=== PATIENT | female | born 1970 | race Caucasian/White ===

== ENCOUNTER → 2018-01-17 | Outpatient (CLI) | payer OTHER ==
[2014-12-04 13:49] VITALS: BMI 25.0
[~2018-01-17] MED LIST: ALB6.7R INH; ALLERGY INJECTION IM; ASPI-692 PO; FLUT1DIS28 IH; GOLYTE PO; HYDR2TAB4 PO; IBUP800T37 PO; IPRA15SP7 NS; MONT10TA PO; MULT-865 PO; OXYM30MI5 NS; TIO18R INH
--- NOTE | 2018-01-18 10:11 | RADIOLOGY IMAGING REPORT ---
FACILITY: [facility] - [place], [place] PATIENT NAME: JUAN LUIS ANDERSON : [id number] MR: [id number] V: [id number] EXAM DATE: ORDERING PHYSICIAN: DAYANA HERNANDEZ TECHNOLOGIST: Maria Dolores Perez PROCEDURE:BILATERAL DIGITAL SCREENING MAMMOGRAM WITH CAD ASSISTED INTERPRETATION & 3D TOMOSYNTHESIS COMPARISON:Prior mammograms 01/12/17, 07/06/16, 01/05/16, 12/31/15, 08/13/14, 07/17/13. INDICATIONS:screening FINDINGS: Moderately heterogeneous fibroglandular tissue is seen throughout the breasts. The parenchymal pattern has remained stable allowing for difference in mammographic technique & patient positioning. There is no evidence of malignant appearing mass, malignant appearing calcifications or other secondary sign of malignancy in either breast. DIAGNOSTIC CATEGORY 1--NEGATIVE. RECOMMENDATIONS: ROUTINE MAMMOGRAM AND CLINICAL EVALUATION. IMPRESSION: BIRADS 1: Negative No significant abnormality is seen. Dictated by: Moira Solis M.D. on 01/17/2018 at 15:51 Transcribed by: JOSE on 01/18/2018 at 7:40 Approved by: Moira Solis M.D. on 01/18/2018 at 10:10 [facility]
== END ==
LOC: MAMO 01:49
PROVIDERS: ATTEND Obstetrics & Gynecology
DX: Z12.31 Encounter for screening mammogram for malignant neoplasm of breast (principal)
CPT/HCPCS: 77063; 77067

== ENCOUNTER 2018-07-01 14:13 | Emergency (ER) | payer OTHER ==
[2014-12-04 13:49] VITALS: Wt 79.4 kg
--- NOTE | 2018-07-01 14:32 | ER Report ---
History and Physical Time Seen By MD: 14:33 Hx. of Stated Complaint: PATIENT REPORTS THAT SHE STARTED FEELING SHORT OF BREATH ABOUT A HALF HOUR AGO. RECENTLY TREATED FOR STREP THROAT. SHE REPORTS THAT SHE HAD SOME EXTRA ANTIBIOTICS IN HER MEDICINE CABINET AND TOOK ONE DOSE OF BACTRIM HPI/ROS Sore throat, sinus congestion, and today with acute shortness of breath and myalgias. No n/v/d. Negative strep test. Took a short course of antibiotics, but did not get better. Remainder of the 14 system rev: Yes Allergies: Coded Allergies: No Known Drug Allergies (Unverified , 10/08/14) Home Meds Reported Medications Fluticasone/Salmeterol (ADVAIR 250-50 DISKUS) 1 Each Disk.w.dev, 1 EACH IH PRN PRN for WHEEZING 04/07/17 Albuterol Sulfate (PROVENTIL HFA) 6.7 Gm Inh, 1-2 PUFF INH 3-4XD PRN for WHEEZING, INH 04/07/17 Oxymetazoline Hcl (NASAL SPRAY) 30 Ml Mist, 30 ML NS PRN PRN for DRY NOSE 04/07/17 [Allergy Injection] No Conflict Check, IM PRN for ALLERGY SYMPTOMS 10/08/14 Reviewed Nurses Notes: Yes Old Medical Records Reviewed: Yes Hx Smoking: No Smoking Status: Never Smoker Hx Substance Use Disorder: No Hx Alcohol Use: Yes Constitutional Vital Sign - Last 24 Hours 07/01/18 07/01/18 07/01/18 07/01/18 14:13 14:17 14:18 14:19 Temp 102.2 Pulse ??? 108 Resp 24 B/P (MAP) 127/111 (116) 121/87 121/87 (98) Pulse Ox 90 O2 Delivery Room Air 07/01/18 07/01/18 07/01/18 07/01/18 14:28 14:30 14:43 15:00 Pulse 100 B/P (MAP) 120/80 (93) 120/76 (91) 117/85 (96) Pulse Ox 94 07/01/18 07/01/18 07/01/18 07/01/18 15:13 15:30 15:43 16:15 Temp 100.1 Pulse 100 98 B/P (MAP) 108/69 (82) Pulse Ox 93 92 Physical Exam General Appearance: The patient is alert, has no immediate need for airway protection and no current signs of toxicity. Eyes: Pupils equal and round no injection. Respiratory: Chest is non tender, lungs are clear to auscultation. Cardiac: tachycardic, regular rhythm Gastrointestinal: Abdomen is soft and non tender, no masses, bowel sounds normal. Musculoskeletal: Neck: Neck is supple and non tender. Extremities have full range of motion and are non tender. Skin: No rashes or lesions. DIFFERENTIAL DIAGNOSIS: After history and physical exam differential diagnosis was considered for adult fever including but not limited to viral syndromes including influenza, urinary tract infection, pneumonia and sepsis. Medical Decision Making Data Points Result Diagram: 07/01/18 1435 07/01/18 1435 Laboratory Hematology Test 07/01/18 14:35 07/01/18 15:12 Red Blood Count 5.11 M/uL (4.17-5.56) Mean Corpuscular Volume 92.8 fL (80.0-96.0) Mean Corpuscular Hemoglobin 31.4 pg (26.0-33.0) Mean Corpuscular Hemoglobin Concent 33.9 g/dL (32.0-36.0) Red Cell Distribution Width 13.3 % (11.5-14.5) Mean Platelet Volume 8.2 fL (7.2-11.1) Neutrophils (%) (Auto) 83.5 % (39.4-72.5) Lymphocytes (%) (Auto) 15.1 % (17.6-49.6) Monocytes (%) (Auto) 0.7 % (4.1-12.4) Eosinophils (%) (Auto) 0.4 % (0.4-6.7) Basophils (%) (Auto) 0.3 % (0.3-1.4) Nucleated RBC Relative Count (auto) 0.0 /100WBC Neutrophils # (Auto) 4.1 K/uL (2.0-7.4) Lymphocytes # (Auto) 0.7 K/uL (1.3-3.6) Monocytes # (Auto) 0.0 K/uL (0.3-1.0) Eosinophils # (Auto) 0.0 K/uL (0.0-0.5) Basophils # (Auto) 0.0 K/uL (0.0-0.1) Nucleated RBC Absolute Count (auto) 0.00 K/uL D-Dimer Quantitative (PE/DVT) 0.45 ug/ml (0-0.50) Sodium Level 138 mmol/L (137-145) Potassium Level 3.9 mmol/L (3.5-5.0) Chloride Level 101 mmol/L (98-107) Carbon Dioxide Level 25 mmol/L (22-31) Blood Urea Nitrogen 14 mg/dl (7-18) Creatinine 0.90 mg/dl (0.52-1.04) Glomerular Filtration Rate Calc > 60.0 Random Glucose 74 mg/dl (75-110) Calcium Level 9.5 mg/dl (8.4-10.2) Total Bilirubin 0.6 mg/dl (0.2-1.3) Aspartate Amino Transf (AST/SGOT) 25 U/L (0-35) Alanine Aminotransferase (ALT/SGPT) 29 U/L (0-56) Alkaline Phosphatase 50 U/L (0-126) Total Protein 7.4 g/dl (6.3-8.2) Albumin 4.1 g/dl (3.5-5.0) Influenza Virus Type A (PCR) Negative (NEGATIVE) Influenza Virus Type B (PCR) Negative (NEGATIVE) Chemistry Test 07/01/18 14:35 07/01/18 15:12 White Blood Count 4.9 k/uL (4.5-11.0) Red Blood Count 5.11 M/uL (4.17-5.56) Hemoglobin 16.1 g/dL (12.0-16.0) Hematocrit 47.4 % (34.0-47.0) Mean Corpuscular Volume 92.8 fL (80.0-96.0) Mean Corpuscular Hemoglobin 31.4 pg (26.0-33.0) Mean Corpuscular Hemoglobin Concent 33.9 g/dL (32.0-36.0) Red Cell Distribution Width 13.3 % (11.5-14.5) Platelet Count 269 K/uL (150-450) Mean Platelet Volume 8.2 fL (7.2-11.1) Neutrophils (%) (Auto) 83.5 % (39.4-72.5) Lymphocytes (%) (Auto) 15.1 % (17.6-49.6) Monocytes (%) (Auto) 0.7 % (4.1-12.4) Eosinophils (%) (Auto) 0.4 % (0.4-6.7) Basophils (%) (Auto) 0.3 % (0.3-1.4) Nucleated RBC Relative Count (auto) 0.0 /100WBC Neutrophils # (Auto) 4.1 K/uL (2.0-7.4) Lymphocytes # (Auto) 0.7 K/uL (1.3-3.6) Monocytes # (Auto) 0.0 K/uL (0.3-1.0) Eosinophils # (Auto) 0.0 K/uL (0.0-0.5) Basophils # (Auto) 0.0 K/uL (0.0-0.1) Nucleated RBC Absolute Count (auto) 0.00 K/uL D-Dimer Quantitative (PE/DVT) 0.45 ug/ml (0-0.50) Glomerular Filtration Rate Calc > 60.0 Calcium Level 9.5 mg/dl (8.4-10.2) Total Bilirubin 0.6 mg/dl (0.2-1.3) Aspartate Amino Transf (AST/SGOT) 25 U/L (0-35) Alanine Aminotransferase (ALT/SGPT) 29 U/L (0-56) Alkaline Phosphatase 50 U/L (0-126) Total Protein 7.4 g/dl (6.3-8.2) Albumin 4.1 g/dl (3.5-5.0) Influenza Virus Type A (PCR) Negative (NEGATIVE) Influenza Virus Type B (PCR) Negative (NEGATIVE) Coagulation Test 07/01/18 14:35 D-Dimer Quantitative (PE/DVT) 0.45 ug/ml ED Course/Re-evaluation ED Course Uncomplicated viral syndrome. D-dimer sent due to tachycardia and brief hypoxia, but d-dimer is negative and she is low pretest probability. No CT scan needed. Symptoms improved with IV fluids, Toradol, and Decadron. Will continue with supportive care. Decision to Disposition Date: Jul 01, 2018 Decision to Disposition Time: 16:31 Depart Departure Latest Vital Signs Vital Signs Date Time Temp Pulse Resp B/P (MAP) Pulse Ox O2 Delivery O2 Flow Rate FiO2 07/01/18 16:15 100.1 07/01/18 15:43 98 92 07/01/18 15:30 108/69 (82) 07/01/18 14:18 24 Room Air Impression: Primary Impression: Viral syndrome Condition: Improved Disposition: HOME OR SELF-CARE Referrals: DAYANA HERNANDEZ MD (PCP) Patient Instructions: Viral Syndrome (ED) TANJA BARTHOLOMEW MD Jul 01, 2018 14:32
[2018-07-01] MEDS ORDERED: KETOROLAC 30 MG/ML VIAL IVP ONE (14:40)
[2018-07-01] MEDS ORDERED: NS(*) 0.9% 1000 ML BAG 1,000 ML IV ONE (14:40)
[2018-07-01] MEDS ORDERED: DEXAMETHASONE SOD PHOS 10MG/ML IVP ONE (14:40)
[2018-07-01 15:30] VITALS: BP 108/69
--- NOTE | 2018-07-01 15:37 | RADIOLOGY IMAGING REPORT ---
FACILITY: [facility] PATIENT NAME: Rosangela Mccoy : 1970 MR: [id number] V: [id number] EXAM DATE: ORDERING PHYSICIAN: TANJA BARTHOLOMEW TECHNOLOGIST: Location: [facility] - [place] Patient: Rosangela Mccoy : 1970 Visit/Account:[id number] Date of Sevice: 07/01/2018 Examination: CHEST PA AND LAT Comparison: 06/21/2016 and earlier. History: Fever and hypoxia. Findings: Cardiac and hilar contour size is within normal limits. No consolidation, nodule, or peribr onchial inflammation. No pneumothorax, edema, or effusion. Osseous structures are intact. IMPRESSION: Negative chest. Report Dictated By: Brett Love MD at 07/01/2018 3:29 PM Report E-Signed By: Brett Love MD at 07/01/2018 3:33 PM WSN:[id number]
[2018-07-01 15:41] LABS: PLATELET COUNT, AUTOMATED 269 K/uL (150-450)
== END 2018-07-01 16:24 | disposition home or self-care (01) ==
LOC: ER 14:33
DX: B34.9 Viral infection, unspecified (principal); R00.0 Tachycardia, unspecified
CPT/HCPCS: 71046; 85025; 85379; 87502; 96361; 96374; 96375; 99284; J1100; J1885; J7030; 82040; 82247; 82310; 82374; 82435; 82565; 82947; 84075; 84132; 84155; 84295; 84450; 84460; 84520

== ENCOUNTER → 2019-03-05 | Outpatient (CLI) | payer OTHER ==
[2014-12-04 13:49] VITALS: BMI 25.0
--- NOTE | 2019-03-06 09:56 | RADIOLOGY IMAGING REPORT ---
FACILITY: [facility] - [place] PATIENT NAME: JUAN LUIS ANDERSON : [id number] MR: [id number] V: [id number] EXAM DATE: [id number] ORDERING PHYSICIAN: DAYSI DALY TECHNOLOGIST: Maria Dolores Perez PROCEDURE: BILATERAL DIGITAL SCREENING MAMMOGRAM WITH CAD ASSISTED INTERPRETATION & 3D TOMOSYNTHESIS REASON FOR STUDY: Screening. FAMILY HISTORY OF BREAST CANCER: None. BREAST PROCEDURES/TREATMENTS: Benign surgical biopsy of the Left breast. COMPARISON: 01/17/18, 01/12/17, 07/06/16, 01/05/16, 01/18/16, 08/13/14. VIEWS OBTAINED: Bilateral 2D & 3D full field CC & MLO projections. BREAST DENSITY: The breasts are heterogeneously dense which can obscure small masses. MAMMOGRAM FINDINGS: In the lateral portion of the Right breast the junction of the middle and posterior depth there is a slightly irregular spiculated area of increased density for which Spot compression view is recommended. This appears to be in the upper portion of the Right breast on the Right MLO view Tomographic slice 14 and appears to contain several round calcifications. The parenchymal pattern of the Left breast has remained stable. IMPRESSION: BIRADS 0: Incomplete. Additional views of the Right breast and possibly Right breast Ultrasound recommended as described above. DIAGNOSTIC CATEGORY 0--INCOMPLETE: NEED ADDITIONAL IMAGING EVALUATION. RECOMMENDATIONS: ADDITIONAL MAMMOGRAPHIC VIEWS REQUIRED: RIGHT BREAST. ULTRASOUND: RIGHT BREAST. Dictated by: Moira Solis M.D. on 03/05/2019 at 16:11 Transcribed by: JOSE on 03/06/2019 at 8:11 Approved by: Moira Solis M.D. on 03/06/2019 at 9:51 [facility]
== END ==
LOC: MAMO 00:45
PROVIDERS: ATTEND Physician Assistant
DX: Z12.31 Encounter for screening mammogram for malignant neoplasm of breast (principal); R92.8 Other abnormal and inconclusive findings on diagnostic imaging of breast
CPT/HCPCS: 77063; 77067

== ENCOUNTER → 2019-03-20 | Outpatient (CLI) | payer OTHER ==
[2014-12-04 13:49] VITALS: BMI 25.0
--- NOTE | 2019-03-20 14:02 | RADIOLOGY IMAGING REPORT ---
FACILITY: [facility] - [place] PATIENT NAME: JUAN LUIS ANDERSON : [id number] MR: [id number] V: [id number] EXAM DATE: [id number] ORDERING PHYSICIAN: DAYSI DALY TECHNOLOGIST: Maria Dolores Perez PROCEDURE:RIGHT DIGITAL MAMMOGRAM DIAGNOSTIC WITH CAD ASSISTED INTERPRETATION & 3D TOMOSYNTHESIS REASON FOR STUDY: Abnormal Screening Mammogram. COMPARISON STUDIES: 03/05/19, 01/17/18, 01/12/17. MAMMOGRAM MAMMOGRAM FINDINGS: With additional imaging the asymmetry in the Right breast appears to efface although the tissue is fairly dense. There is no concerning calcification or visible distortion. ULTRASOUND AREA SCANNED: ULTRASOUND FINDINGS: There is no significant suspicious mass, shadowing, or architectural distortion demonstrated. 7cm from the nipple at 9 o'clock a 3mm cyst is demonstrated. An additional 3mm cyst is demonstrated 4cm from the nipple at 10 o'clock. These are incidental and benign. DIAGNOSTIC CATEGORY 2--BENIGN FINDING. RECOMMENDATIONS: ROUTINE MAMMOGRAM IN 1YR AND CLINICAL EVALUATION. IMPRESSION: BIRADS 2: Benign finding. I discussed exam results with the patient at the completion of the Ultrasound. Dictated by: Frederick Darby on 03/20/2019 at 11:44 Transcribed by: JOSE on 03/20/2019 at 13:19 Approved by: Frederick Draby on 03/20/2019 at 13:57 [facility]
--- NOTE | 2019-03-20 14:03 | RADIOLOGY IMAGING REPORT ---
[place] [facility] [place] NAME: JUAN LUIS ANDERSON : [id number] MR: [id number] V: [id number] EXAM DATE: [id number] ORDERING PHYSICIAN: DAYSI DALY TECHNOLOGIST: Mikayla Hitchcock RDMS(ABD,OBGYN,BR),RVT PROCEDURE:RIGHT DIGITAL MAMMOGRAM DIAGNOSTIC WITH CAD ASSISTED INTERPRETATION & 3D TOMOSYNTHESIS REASON FOR STUDY: Abnormal Screening Mammogram. COMPARISON STUDIES: 03/05/19, 01/17/18, 01/12/17. MAMMOGRAM MAMMOGRAM FINDINGS: With additional imaging the asymmetry in the Right breast appears to efface although the tissue is fairly dense. There is no concerning calcification or visible distortion. ULTRASOUND AREA SCANNED: ULTRASOUND FINDINGS: There is no significant suspicious mass, shadowing, or architectural distortion demonstrated. 7cm from the nipple at 9 o'clock a 3mm cyst is demonstrated. An additional 3mm cyst is demonstrated 4cm from the nipple at 10 o'clock. These are incidental and benign. DIAGNOSTIC CATEGORY 2--BENIGN FINDING. RECOMMENDATIONS: ROUTINE MAMMOGRAM IN 1YR AND CLINICAL EVALUATION. IMPRESSION: BIRADS 2: Benign finding. I discussed exam results with the patient at the completion of the Ultrasound. Dictated by: Frederick Darby on 03/20/2019 at 11:45 Transcribed by: JOSE on 03/20/2019 at 13:20 Approved by: Frederick Darby on 03/20/2019 at 13:58 [facility]
== END ==
LOC: MAMO 00:50
PROVIDERS: ATTEND Physician Assistant
DX: N60.01 Solitary cyst of right breast (principal)
CPT/HCPCS: 77061; 77065